=== PATIENT | male | born 1945 | race Hispanic/Latino ===

== ENCOUNTER 2016-04-17 09:56 | Outpatient (CLI) | payer MEDICARE ==
[2016-04-17 10:37] LABS: #Eosinphils 0.2 thou/uL (0.0-0.7); #Lymphocytes 1.4 thou/uL (1.20-3.40); #Monocytes 0.4 thou/uL (0.11-0.59); %Basophils 0.7 % (0.0-1.0); %Eosinophils 3.3 % (0.0-10.0); %Monocytes 8.6 % (0.0-10.0); Hematocrit 46.8 % (42.0-52.0); Mean Platelet Volume 6.8 fL (7.4-10.4); Red Blood Cell (RBC) Count 4.79 mill/uL (4.70-6.10)
[2016-04-17 11:12] LABS: ALT (SGPT) 17 U/L (0-55); AST (SGOT) 22 U/L (5-34); Alkaline Phosphatase 109 U/L (40-150); Anion Gap 12 mmol/L (10-20); BUN (Urea Nitrogen) 26 mg/dL (8.4-25.7); Bilirubin, Total 0.8 mg/dL (0.2-1.2); Calc. Creatinine Clearance 0 mL/min (70-130); Calcium 9.4 mg/dL (7.8-10.44); Carbon Dioxide 26 mmol/L (23-31); Chloride 108 mmol/L (98-107); Estimated GFR-MDRD 63; LDL Cholesterol, Calculated 97 mg/dL; Protein, Total 7.3 g/dL (5.8-8.1)
== END 2016-04-17 09:57 | disposition home or self-care (01) ==
LOC: HPCALD 09:56
PROVIDERS: ATTEND Physician Assistant
DX: I10 Essential (primary) hypertension (principal)
CPT/HCPCS: 36415; 80053; 80061; 84443; 85025

== ENCOUNTER 2017-07-01 11:24 | Emergency (ER) | payer MEDICARE ==
[2017-07-01] MEDS ORDERED: Adacel (T-DAP) 0.5 ML VIAL ONE (11:55)
--- NOTE | 2017-07-01 18:55 | RAD ---
RIGHT FEMUR 07/01/17 The femur appears intact. No fractures or areas of bony destruction were seen. The hip joint appears normal. An old ORIF of proximal tibial fractures was seen. IMPRESSION: No acute femoral finding. POS: HOME
== END 2017-07-01 12:17 | disposition home or self-care (01) ==
LOC: BURERS 11:24
DX: S70.11XA Contusion of right thigh, initial encounter (principal); I10 Essential (primary) hypertension; W55.12XA Struck by horse, initial encounter
CPT/HCPCS: 90471; 90715

== ENCOUNTER 2020-01-06 03:57 | Emergency (ER) | payer MEDICARE ==
[2020-01-06] MEDS ORDERED: Tranexamic Acid 1,000 MG/10 ML VIAL ONE (04:16)
[2020-01-06 05:24] LABS: #Basophils 0.1 thou/uL (0.0-0.2); #Eosinphils 0.2 thou/uL (0.0-0.7); #Lymphocytes 1.7 thou/uL (1.20-3.40); #Monocytes 0.6 thou/uL (0.11-0.59); %Basophils 0.7 % (0.0-1.0); %Eosinophils 2.1 % (0.0-10.0); %Monocytes 8.3 % (0.0-10.0); Hemoglobin 13.2 g/dL (14.0-18.0); Mean Corpuscular HGB CONC 30.8 g/dL (32.0-36.0); Mean Corpuscular Volume 94.1 fL (78.0-98.0); Mean Platelet Volume 7.3 fL (7.4-10.4); Platelet Count 215 thou/uL (130-400); RBC Distribution Width 13.7 % (11.5-14.5); Red Blood Cell (RBC) Count 4.57 mill/uL (4.70-6.10); White Blood Cell (WBC) Count 7.5 thou/uL (4.8-10.8)
[2020-01-06 05:28] LABS: INR-International Normal Ratio 1.1
[2020-01-06 05:37] LABS: ALT (SGPT) 8 U/L (8-55); AST (SGOT) 19 U/L (5-34); Alkaline Phosphatase 105 U/L (40-110); Anion Gap 15 mmol/L (10-20); BUN (Urea Nitrogen) 33 mg/dL (8.4-25.7); Bilirubin, Total 1.6 mg/dL (0.2-1.2); Calc. Creatinine Clearance 0 mL/min (70-130); Calcium 9.2 mg/dL (7.8-10.44); Carbon Dioxide 24 mmol/L (23-31); Chloride 106 mmol/L (98-107); Estimated GFR-MDRD 61; Globulin 3.2 g/dL (2.4-3.5); Glucose 112 mg/dL (83-110); Potassium 3.8 mmol/L (3.5-5.1); Protein, Total 7.2 g/dL (5.8-8.1); Sodium 141 mmol/L (136-145)
== END 2020-01-06 08:11 | disposition home or self-care (01) ==
LOC: BURERS 03:57
DX: K08.89 Other specified disorders of teeth and supporting structures (principal); I10 Essential (primary) hypertension
CPT/HCPCS: 80053; 85025; 85610; 99283

== ENCOUNTER 2020-05-30 14:49 | Emergency (ER) | payer MEDICARE ==
[2020-05-30 15:31] LABS: #Lymphocytes 1.1 thou/uL (1.20-3.40); #Monocytes 0.7 thou/uL (0.11-0.59); #Neutrophils 4.6 thou/uL (1.40-6.50); %Basophils 0.6 % (0.0-1.0); %Eosinophils 0.5 % (0.0-10.0); %Lymphocytes 16.7 % (21.0-51.0); %Monocytes 11.4 % (0.0-10.0); %Neutrophils 70.9 % (42.0-75.0); Hemoglobin 12.9 g/dL (14.0-18.0); Mean Corpuscular HGB CONC 30.8 g/dL (32.0-36.0); Mean Corpuscular Hemoglobin 27.6 pg (27.0-31.0); Mean Corpuscular Volume 89.7 fL (78.0-98.0); Mean Platelet Volume 7.4 fL (7.4-10.4); Platelet Count 225 thou/uL (130-400); RBC Distribution Width 16.6 % (11.5-14.5); Red Blood Cell (RBC) Count 4.68 mill/uL (4.70-6.10); White Blood Cell (WBC) Count 6.5 thou/uL (4.8-10.8)
[2020-05-30 15:40] LABS: INR-International Normal Ratio 1.4; PTT 43.8 sec (22.9-36.1); Prothrombin Time 17.3 sec (12.0-14.7)
[2020-05-30 15:49] LABS: ALT (SGPT) 66 U/L (8-55); AST (SGOT) 57 U/L (5-34); Albumin 3.5 g/dL (3.4-4.8); Alkaline Phosphatase 173 U/L (40-110); BUN (Urea Nitrogen) 33 mg/dL (8.4-25.7); Bilirubin, Total 2.5 mg/dL (0.2-1.2); Calc. Creatinine Clearance 0 mL/min (70-130); Calcium 9.3 mg/dL (7.8-10.44); Carbon Dioxide 18 mmol/L (23-31); Chloride 82 mmol/L (98-107); Globulin 3.3 g/dL (2.4-3.5); Glucose 133 mg/dL (83-110); Protein, Total 6.8 g/dL (5.8-8.1)
[2020-05-30 15:58] LABS: Potassium 2.6 mmol/L (3.5-5.1)
[2020-05-30] MEDS ORDERED: Furosemide 40 MG/4 ML VIAL ONE (15:59)
[2020-05-30] MEDS ORDERED: Aspirin Chewable 81 MG TAB ONE (15:59)
[2020-05-30 16:06] LABS: CKMB 2.5 ng/mL (0-6.6)
[2020-05-30 16:17] LABS: Sodium 136 mmol/L (136-145)
[2020-05-30] MEDS ORDERED: Potassium Chloride 20 MEQ/100 ML PREMIX BAG ONE (16:45)
[2020-05-30] MEDS ORDERED: Potassium Chloride 20 MEQ TAB ONE (17:00)
[2020-05-30 17:46] LABS: Bilirubin Negative (Negative); Blood, Urine Trace (Negative); Clarity Clear (Clear); Glucose, Urine (Dipstick) Negative (Negative); Ketone, Urine Negative (Negative); Leukocyte Negative (Negative); Nitrite Negative (Negative); Protein, Urine (Dipstick) 100 mg/dL (Neg-Trace); Specific Gravity, Urine 1.025 (1.005-1.030); pH, Urine 5.5 (5.0-9.0)
[2020-05-30 17:52] LABS: Bacteria/HPF 2+ HPF (None Seen); Mucous/LPF Few LPF (<2+); RBC/HPF 0-3 HPF (0-3); Squamous Epithelial 0-3 HPF (0-3); WBC/HPF 0-3 HPF (0-3)
== END 2020-05-30 17:55 | disposition short-term general hospital (02) ==
LOC: BURERS 14:49
DX: I11.0 Hypertensive heart disease with heart failure (principal); I50.9 Heart failure, unspecified; E87.6 Hypokalemia; E87.2 Acidosis
CPT/HCPCS: 71045; 80053; 81003; 81015; 82553; 83605; 83880; 84484; 85025; 85610; 85730; 93005; 94760; 96365; 96375; J1940; J3480

== ENCOUNTER 2022-03-21 01:30 | Emergency (ER) | payer MEDICARE ==
[2022-03-21 02:17] LABS: #Basophils 0.1 thou/uL (0.0-0.2); #Eosinphils 0.3 thou/uL (0.0-0.7); #Lymphocytes 1.3 thou/uL (1.20-3.40); #Monocytes 0.6 thou/uL (0.11-0.59); %Basophils 0.8 % (0.0-1.0); %Eosinophils 4.3 % (0.0-10.0); %Lymphocytes 21.2 % (21.0-51.0); %Monocytes 9.5 % (0.0-10.0); %Neutrophils 64.2 % (42.0-75.0); Hemoglobin 14.5 g/dL (14.0-18.0); Mean Corpuscular HGB CONC 35.5 g/dL (32.0-36.0); Mean Corpuscular Hemoglobin 34.2 pg (27.0-31.0); Mean Corpuscular Volume 96.4 fl (78.0-98.0); Mean Platelet Volume 7.1 fL (7.4-10.4); Platelet Count 222 10x3/uL (130-400); RBC Distribution Width 12.7 % (11.5-14.5); Red Blood Cell (RBC) Count 4.24 mill/uL (4.70-6.10); White Blood Cell (WBC) Count 6.2 10x3/uL (4.8-10.8)
[2022-03-21 02:32] LABS: ALT (SGPT) 27 U/L (8-55); AST (SGOT) 34 U/L (5-34); Albumin 3.9 g/dL (3.4-4.8); Alkaline Phosphatase 97 U/L (40-110); Anion Gap 13 mmol/L (10-20); BUN (Urea Nitrogen) 22 mg/dL (8.4-25.7); Bilirubin, Total 1.2 mg/dL (0.2-1.2); Calc. Creatinine Clearance 0 mL/min (70-130); Calcium 9.5 mg/dL (7.8-10.44); Carbon Dioxide 21 mmol/L (23-31); Chloride 109 mmol/L (98-107); Estimated GFR 82; Globulin 3.7 g/dL (2.4-3.5); Glucose 131 mg/dL (83-110); Potassium 3.7 mmol/L (3.5-5.1); Protein, Total 7.6 g/dL (5.8-8.1); Sodium 139 mmol/L (136-145)
[2022-03-21 02:49] LABS: CKMB 3.2 ng/mL (0-6.6)
[2022-03-21] MEDS ORDERED: Aspirin Chewable 81 MG TAB ONE ×2 (02:51→02:52)
[2022-03-21] MEDS ORDERED: Furosemide 40 MG/4 ML VIAL ONE (02:52)
[2022-03-21] MEDS ORDERED: Nitroglycerin 2% Ointment 1 INCH/1 GM Packet ONE (02:52)
[2022-03-21] MEDS ORDERED: hydrALAZINE 20 MG/ML VIAL ONE (04:55)
[2022-03-21 08:53] LABS: CKMB 3.2 ng/mL (0-6.6)
[2022-03-21] MEDS ORDERED: Acetaminophen 500 MG TAB ONE (13:05)
== END 2022-03-21 13:50 | disposition home or self-care (01) ==
LOC: BURERS 01:30
DX: I11.0 Hypertensive heart disease with heart failure (principal); I50.9 Heart failure, unspecified; R77.8 Other specified abnormalities of plasma proteins
CPT/HCPCS: 71045; 80053; 82553; 83880; 84484; 85025; 93005; 94760; 96374; 96375; J0360; J1940

== ENCOUNTER 2023-09-03 13:23 | Emergency (ER) | payer MEDICARE ==
[2023-09-03] MEDS ORDERED: Cephalexin 250 MG CAP ONE (14:24)
[2023-09-03] MEDS ORDERED: predniSONE 20 MG TAB ONE (14:24)
== END 2023-09-03 14:34 | disposition home or self-care (01) ==
LOC: BURERS 13:23
DX: L30.9 Dermatitis, unspecified (principal); I11.0 Hypertensive heart disease with heart failure; I50.9 Heart failure, unspecified; Z79.899 Other long term (current) drug therapy
CPT/HCPCS: 99283; J7512

== ENCOUNTER 2025-02-08 15:28 | Outpatient (CLI) | payer MEDICARE | END 2025-02-08 15:29 | disposition home or self-care (01) | LOC: BURRAD 15:28 | PROVIDERS: ATTEND Physician Assistant | DX: M25.532 Pain in left wrist (principal) ==